=== PATIENT | female | born 1930 | race Asian ===

== ENCOUNTER 2017-05-27 10:39 | Emergency (ER) | payer OTHER ==
[~2017-05-27] VITALS: Ht 152.4 cm; Wt 50.0 kg
[2017-05-27 10:48] VITALS: TEMP 37.2; Ht 152.4 cm; Wt 50.0 kg
--- NOTE | 2017-05-27 11:37 | EMERGENCY ROOM VISIT NOTE ---
History Report prepared by Anny: Jessica Bernal Under the Supervision of: Kevin FriedmanO. First contact with patient: 10:56 Chief Complaint: COUGH Stated Complaint: CHOKING,COUGH Nursing Triage Summary: pt daughter in law brought pt in for coughing and choking on sputum last night per daugher in law History of Present Illness The patient is a 86 year old female who presents to the Emergency Room with complaints of persistent flu like symptoms that began last night. The patient states that she had a cold that began 4-5 days ago, noting she has been taking Mucinex to thin her mucous. She notes she has some coughing, that worsens when she lays down. The patient states her mucous drains to the back of her throat, which causes her trouble breathing. She denies any chest pain, fevers, or swelling in the legs. The patient notes she had pneumonia in the 's and had a pneumonia shot in 2016. Source of History: patient Onset: last night Position: other (global) Quality: other (shortness of breath) Timing: other (persistent) Associated Symptoms: + cough, No fevers, No chest pain Review of Systems See HPI for pertinent positives & negatives. A total of 10 systems reviewed and were otherwise negative. Family History Patient reports no known family medical history. Social History Smoking Status: Former Smoker Smokeless Tobacco Use: No Alcohol Use: none Drug Use: none Housing Status: lives with family Occupation Status: retired Current/Historical Medications Scheduled Albuterol Hfa (Ventolin Hfa), 1 PUFF INH Q4 Azithromycin (Zithromax Z-Raul), 1 PKT PO UD Hydrochlorothiazide (Hydrochlorothiazide), 12.5 MG PO DAILY Simvastatin (Zocor), 20 MG PO DAILY Allergies Coded Allergies: No Known Allergies (Unverified , 05/27/17) Physical Exam Vital Signs Date Time Temp Pulse Resp B/P (MAP) Pulse Ox O2 Delivery O2 Flow Rate FiO2 05/27/17 13:00 80 18 171/71 91 Room Air 05/27/17 10:48 37.2 95 20 133/78 94 Room Air Physical Exam GENERAL: Patient is awake, alert, and in no acute distress. Patient is resting comfortably and showing no signs of anxiety EYES: The conjunctivae are clear. The pupils are round and reactive. EARS, NOSE, MOUTH AND THROAT: The nose is without any evidence of any deformity. Mucous membranes are moist tongue is midline NECK: The neck is nontender and supple. RESPIRATORY: Normal respiratory effort is noted there is no evidence of wheezing rhonchi or rales CARDIOVASCULAR: Regular heart and rhythm to auscultation, systolic murmur suggested. GASTROINTESTINAL: The abdomen is soft. Bowel sounds are present in all quadrants. Abdomen is nontender MUSCULOSKELETAL/EXTREMITIES: There is no evidence of gross deformity full range of motion is noted in the hips and shoulders SKIN: There is no obvious evidence of any rash. There are no petechiae, pallor or cyanosis noted. NEUROLOGIC: Patient is awake alert and oriented x3 strength is symmetric patellar reflexes are 2+ bilaterally Medical Decision & Procedures ER Provider Diagnostic Interpretation: Radiology results as stated below per my review and radiologist interpretation: CHEST 2 VIEWS ROUTINE CLINICAL HISTORY: Cough. COMPARISON STUDY: No previous studies for comparison. FINDINGS: Visualized portions of the upper abdomen demonstrate a right upper quadrant stent, likely biliary in location. Symmetric biapical opacities favor scarring. There is no consolidation. There is no evidence of pulmonary edema. No pneumothorax or pleural effusion is noted. Pulmonary vascularity is normal. Cardiac size is at the upper limits of normal. IMPRESSION: 1. Symmetric biapical opacities which favor scarring. 2. No consolidation. 3. No evidence of pulmonary edema. Electronically signed by: Deni Barajas M.D. 05/27/2017 12:06 PM Dictated Date/Time: 05/27/2017 12:05 PM Laboratory Results Test 05/27/17 11:40 Influenza Type A Antigen Neg for Influ A (NEG) Influenza Type B Antigen Neg for Influ B (NEG) Laboratory results per my review. ED Course 1059: The patient was evaluated in room A9. A complete history and physical examination were performed. 1251: Upon reevaluation, the patient is resting comfortably. I discussed the results and treatment plan with her. She verbalized agreement of the treatment plan. The patient was discharged home. Medical Decision Prior records/ancillary studies reviewed. Triage Nursing notes reviewed. The patient's history was concerning for respiratory difficulties. Differential diagnosis: Etiologies such as infections, reactive airway disease, pneumonia, pneumothorax , COPD, CHF, cardiac ischemia, pulmonary embolism, musculoskeletal, gastrointestinal, as well as others were entertained. The patient is an 86-year-old female who had difficulty breathing last evening. She was apparently coughing and having significant expectoration of mucus. Today the patient came to the emergency department because the family members were concerned she may have pneumonia. I discussed the patient's radiographic studies with the family members. At this time I feel she may be suffering from a bronchitis. They were encouraged to continue all medications as prescribed. There are also encouraged to follow-up with her primary care physician for further evaluation but return to emergency department immediately if symptoms change worsen or the need arises. Medication Reconcilliation Current Medication List: was personally reviewed by me Impression Primary Impression: Acute bronchitis Additional Impression: Upper respiratory infection Scribe Attestation The scribe's documentation has been prepared under my direction and personally reviewed by me in its entirety. I confirm that the note above accurately reflects all work, treatment, procedures, and medical decision making performed by me. Departure Information Dispostion Home / Self-Care Prescriptions Albuterol Hfa (VENTOLIN HFA) 200 Puffs/48421 Mcg Aers 1 PUFF INH Q4, #1 INHALER Prov: Alfredo Page, DO 05/27/17 Azithromycin (ZITHROMAX Z-RAUL) 250 Mg Tab 1 PKT PO UD for 5 Days, #1 PKT Prov: Alfredo Page, DO 05/27/17 Referrals No Doctor, Assigned (PCP) Forms HOME CARE DOCUMENTATION FORM, IMPORTANT VISIT INFORMATION Patient Instructions My [facility] Additional Instructions Continue all medications as prescribed. Follow up with the primary care physician as soon as possible Problem Qualifiers Primary Impression: Acute bronchitis Bronchitis organism: unspecified organism Qualified Codes: J20.9 - Acute bronchitis, unspecified Additional Impression: Upper respiratory infection URI type: unspecified URI Qualified Codes: J06.9 - Acute upper respiratory infection, unspecified
--- NOTE | 2017-05-27 12:08 | DIAGNOSTIC IMAGING REPORT ---
CHEST 2 VIEWS ROUTINE CLINICAL HISTORY: Cough. COMPARISON STUDY: No previous studies for comparison. FINDINGS: Visualized portions of the upper abdomen demonstrate a right upper quadrant stent, likely biliary in location. Symmetric biapical opacities favor scarring. There is no consolidation. There is no evidence of pulmonary edema. No pneumothorax or pleural effusion is noted. Pulmonary vascularity is normal. Cardiac size is at the upper limits of normal. IMPRESSION: 1. Symmetric biapical opacities which favor scarring. 2. No consolidation. 3. No evidence of pulmonary edema. Electronically signed by: Deni Barajas M.D. 05/27/2017 12:06 PM Dictated Date/Time: 05/27/2017 12:05 PM
[2017-05-27 12:21] LABS: INFLUENZA B ANTIGEN Neg for Influ B (NEG)
[2017-05-27] MEDS ORDERED: VNTHFA/IN INH (12:41)
[2017-05-27] MEDS ORDERED: AZITTAB PO (12:41)
[2017-05-27] MEDS ORDERED: HYDR25TA5 PO (12:49)
[2017-05-27] MEDS ORDERED: SIMV20TA2 PO (12:49)
[2017-05-27 13:00] VITALS: BP 171/71; PULSE 80; O2SAT 91
== END 2017-05-27 13:01 | disposition home or self-care (01) ==
LOC: C.EDB 10:43 → C.EDA 13:01
DX: J20.9 Acute bronchitis, unspecified (principal); J06.9 Acute upper respiratory infection, unspecified; Z87.891 Personal history of nicotine dependence